=== PATIENT | female | born 1990 | race Asian ===

== ENCOUNTER → 2016-10-14 | Outpatient (CLI) | payer OTHER ==
--- NOTE | 2016-10-14 17:36 | US ---
Complete Pelvic Ultrasound INDICATION: Check lining and complex left ovarian cyst. TECHNIQUE: Transabdominal and transvaginal pelvic ultrasound is performed. Comparison: No priors for comparison. FINDINGS: The uterus measures 8.9 x 4.5 x 5.6 cm. No fibroids. It is anteverted. The endometrial lining measures 6.8 mm, is homogeneous, and is without mass or vascularity. No fluid in the lining. Junctional zone is homogeneous. The right ovary measures 2.6 x 1.6 x 3 cm. It is sonographically normal. The left ovary measures 3.9 x 3 x 4.5 cm. Complex left ovarian cyst measures 2.8 x 2.3 x 2.2 cm, and is without color Doppler flow. No free fluid in the pelvis. IMPRESSIONS 1. Normal right ovary and uterus. 2. Complex left ovarian cyst, without vascularity. This probably represents a hemorrhagic ovarian c yst. E:orlando
== END ==
LOC: CIMAGING 08:50
PROVIDERS: ATTEND Obstetrics & Gynecology
DX: N83.202 Unspecified ovarian cyst, left side (principal)
CPT/HCPCS: 76856-PO

== ENCOUNTER 2017-09-21 05:15 | Observation (INO) | payer OTHER | END 2017-09-21 08:25 | disposition home or self-care (01) | LOC: FLD 05:15 | PROVIDERS: ADMIT Obstetrics & Gynecology; ATTEND Obstetrics & Gynecology | DX: Z34.83 Encounter for supervision of other normal pregnancy, third trimester (principal); Z3A.39 39 weeks gestation of pregnancy | CPT/HCPCS: 59025; G0378 ==

== ENCOUNTER 2017-09-23 14:20 | Inpatient (IN) | payer OTHER ==
[2017-09-23] MEDS ORDERED: OXYTOCIN 20 UNIT in LR 1,000 ML IV PRN (15:38)
[2017-09-23] MEDS ORDERED: EPSOM SALT 454 GM TP PRN (15:38)
[2017-09-23] MEDS ORDERED: TERBUTALINE SULFATE 1 MG/ML VIAL IV PRN (15:38)
[2017-09-23] MEDS ORDERED: LR 1,000 ML IV PRN (15:38)
[2017-09-23] MEDS ORDERED: IBUPROFEN 600 MG TAB PO PRN (15:38)
[2017-09-23] MEDS ORDERED: OLIVE OIL 118 ML BTL MISC PRN (15:38)
[2017-09-23 20:12] LABS: PLATELET COUNT 168 10^3/uL (150-400)
[2017-09-23] MEDS ORDERED: fentaNYL 100 MCG/2 ML INJ ONE (20:36)
[2017-09-23] MEDS ORDERED: BUPIVACAINE 0.25% 30 ML SDV ONE (20:37)
--- NOTE | 2017-09-23 21:00 | GHP ---
[f rep st] PREOP HISTORY AND PHYSICAL DATE OF ADMISSION: 09/23/2017 ADMISSION DIAGNOSES: 1. Intrauterine at 40 and 1/7th weeks' gestation. 2. Early labor. HISTORY OF PRESENT ILLNESS: Patient is a 27-year-old 3, para 0-0-2-0, who is 40 and 1/7th we eks' gestation. Her estimated date of confinement is 09/22/2017, dated by last menstrual period of 0 12/11/2016, consistent with a 6-week ultrasound. Patient initiated care with [facility] at 8 weeks. was initially complicated by low progesterone and some vaginal bleeding. She was treated with vaginal progesterone. The remainder of has been overall unremarkabl e. Patient has been in prodromal labor for the last day and a half. [facility], and was 1 cm dilated. She has had contractions, which feel like they are increasing in frequency and intensity throughout the day, and arrived to Labor and Delivery, and was 1 cm dilat ed still. Contractions have been getting progressively stronger and more intense, and patient was ju st re-examined, and was 3 cm dilated, 80% effaced, and -2 station. The patient is being admitted for expected management and pain relief. MEDICAL HISTORY: Unremarkable. MEDICATIONS: vitamins and iron. SURGICAL HISTORY: Dilation and curettage after a missed . ALLERGIES: No known drug allergies. SOCIAL HISTORY: Patient is a homemaker. She denies tobacco, alcohol, or drug use. She is . FAMILY MEDICAL HISTORY: Noncontributory. OBSTETRICAL/GYNECOLOGICAL HISTORY: Menarche, age 11. Periods every 30 days, lasting 5 days. She is a 3, para 0-0-2-0. In July 2015, she had a missed , for which she had a dilatio n and curettage. In August 2016, she had a spontaneous . Current has been uncom plicated. The patient denies any history of any abnormal Pap smears or sexually-transmitted diseases . REVIEW OF SYSTEMS: 10-point review of systems is negative,with the exception of the above-mentioned pertinent positives. She is having positive contractions. No loss of fluid. Denies any vaginal ble eding. She denies any headache or changes in vision, nausea, vomiting, fevers or chills. She denies the other concerns. PHYSICAL EXAMINATION: VITAL SIGNS: Stable. GENERAL APPEARANCE: Alert and oriented x3, but uncomfo rtable with contractions. PSYCH: She has appropriate affect. NECK: Mobile and supple. HEART: Ra te is regularly regular. LUNGS: Clear to auscultation bilaterally. Abdomen is gravid, nondistended , nontender. EXTREMITIES: Reveal no calf tenderness or edema. NEUROMUSCULAR: Grossly intact. JAMES ROLOGICAL: Exam is grossly intact. PELVIC: She is 3 cm dilated, 80% effaced, and -2 station. Feta l heart tracing is category 1, and she is having irregular contractions. LABS: Blood type A/B positive, antibody screen negative. Rubella immune. GBS negative. H BsAg negative. HIV negative. Her 50 g glucose was 113. She had a negative Verifi screen. ASSESSMENT AND PLAN: A 27-year-old 3, para 0-0-2-0, who is 40 and 1/7th weeks' gestation, wh o presents in early labor. Patient is requesting an epidural. She will receive an epidural, and be augmented as needed. /[id number]/MODL
[2017-09-23] MEDS ORDERED: NALOXONE HCL 0.4 MG/ML INJ IVP PRN (21:04)
[2017-09-23] MEDS ORDERED: ONDANSETRON 4 MG/2 ML VIAL IVP PRN (21:04)
--- NOTE | 2017-09-23 21:08 | PDANEPAE ---
ANE History of Present Illness Pt in active labor ANE Past Medical History Past Medical History: Pt denies significant PMHx - Pulmonary History Hx Sleep Apnea: No - Endocrine History Hx Diabetes: No ANE Review of Systems Review of systems is: negative Review of Systems: ANE Patient History - Allergies Allergies/Adverse Reactions: No Allergies [NKDA] Allergy (Verified 09/21/17 05:41) - Home Medications Home medications: home medication list seen and reviewed Home Medications: IRON,CARBONYL [IRON] 45 mg PO 09/23/17 [Last Taken 2 Days Ago ~09/21/17] Vit27&Calcium/Iron/FA [ Rx 1 Tablet (RX)] 1 each PO DAILY 09/23 [Last Taken 09/23/17] - Smoking Hx Smoking Status: Never smoked ANE Labs/Vital Signs - Labs Result Diagrams: 09/23/17 19:55 - Vital Signs Height: 165 cm Weight: 74.843 kg ANE Physical Exam - Airway Neck exam: FROM ANE Anesthesia Plan Anesthesia Plan: epidural
[2017-09-23] MEDS ORDERED: PHENYLEPHRINE HCL 100 MCG/ML SYR ONE (21:10)
[2017-09-23] MEDS ORDERED: fentaNYL 2MCG/ML/BUP 0.1% RTU 100 ML BAG EP ONE (21:10)
[2017-09-23] MEDS ORDERED: LR 500 ML IV SCH (21:30)
[2017-09-23] MEDS ORDERED: fentaNYL 2MCG/ML/BUP 0.1% RTU 100 ML EP SCH (21:30)
[2017-09-23] MEDS: PHENYLEPHRINE HCL 100 MCG/ML SYR IVP PRN ×5 (21:53→22:24)
--- NOTE | 2017-09-23 22:02 | OBPROG ---
Labor Progress Note Assessment/Plan: Assessment: Plan: Subjective/Intrapartum Course: 09/23/17 21:53 patient comfortable with epidural. contractions have spaced out a bit. patient is exhausted. will reexamine in several hours and augment if needed. status is reassuring. Objective: 09/23/17 19:55 Patient ABO/Rh AB POSITIVE 09/23/17 19:55 - SVE Membranes: Intact - Contraction Pattern Assessment Current Contraction Pattern: Regular - FHR Assessment Painter FHR Pattern Variability: Moderate FHR Category: 1 - AP Antepartum Course: 09/23/17 22:02 [facility] uncomplicated . prodromal labor x 2 day. arrived 1 cm. progressed to 3 cm. requested epidural. Oxytocin Orders Assessment - Pre-Induction/Augmentation Assessment Gestational Age: 40 week(s) and 1 day(s) ICD10 Worksheet Patient Problems: Problems Problem Status Onset Normal labor Acute
[2017-09-23] MEDS ORDERED: LR 500 ML IV PRN (22:04)
[2017-09-23] MEDS ORDERED: OXYTOCIN 30 UNIT in NS 500 ML IV SCH (22:15)
[2017-09-23] MEDS ORDERED: LIDOCAINE 1% 300 MG/30 ML SDV ONE (22:28)
[2017-09-23] MEDS ORDERED: OLIVE OIL 118 ML BTL ONE (22:28)
[2017-09-23] MEDS ORDERED: AMMONIA AROMATIC 1 EACH AMP IH ONE (22:29)
[2017-09-23] MEDS ORDERED: OXYTOCIN 10 UNIT/ML VIAL ONE (22:29)
[2017-09-23] MEDS ORDERED: MISOPROSTOL 200 MCG TAB ONE (22:29)
--- NOTE | 2017-09-24 02:26 | OBPROG ---
Labor Progress Note Assessment/Plan: Assessment: Plan: Subjective/Intrapartum Course: 09/23/17 21:53 patient comfortable with epidural. contractions have spaced out a bit. patient is exhausted. will reexamine in several hours and augment if needed. status is reassuring. 09/24/17 02:19 patient comfortable with epidural. Nurse Joshua examined patient at 0100. membranes grossly ruptured. SVE 4/100/-1. will recheck in 2 hours and augment if needed. Objective: 09/23/17 19:55 Patient ABO/Rh AB POSITIVE 09/23/17 19:55 - SVE Dilation (cm): 4 Effacement (%): 100 Station: -1 Membranes: SROM Amniotic Fluid Color: Clear - Contraction Pattern Assessment Current Contraction Pattern: Regular - FHR Assessment Painter FHR Pattern Variability: Moderate FHR Category: 1 - AP Antepartum Course: 09/23/17 22:02 initiated care in first trimester at [facility]. uncomplicated . prodromal labor x 2 day. arrived 1 cm. progressed to 3 cm. requested epidural. Oxytocin Orders Assessment - Pre-Induction/Augmentation Assessment Gestational Age: 40 week(s) and 1 day(s) ICD10 Worksheet Patient Problems: Problems Problem Status Onset Normal labor Acute
[2017-09-24] MEDS ORDERED: AMPICILLIN SODIUM 1 GM VIAL ONE (08:42)
[2017-09-24] MEDS ORDERED: SODIUM CHLORIDE IV ONE (08:43)
[2017-09-24] MEDS ORDERED: GENTAMICIN IV ONE (08:43)
[2017-09-24] MEDS ORDERED: AMPICILLIN SODIUM 1 GM in NS 100 ML IV SCH (08:45)
[2017-09-24] MEDS ORDERED: GENTAMICIN 80 MG/NACL 100 ML IV SCH (08:45)
[2017-09-24] MEDS ORDERED: AMPICILLIN SODIUM 1 GM in NS 50 ML IV SCH (08:45)
[2017-09-24] MEDS ORDERED: D5W IV ONE (08:47)
[2017-09-24] MEDS ORDERED: GENTAMICIN SULFATE IV ONE (08:47)
[2017-09-24] MEDS: AMPICILLIN SODIUM 1 GM in NS 50 ML IV SCH ×2 (08:55→09:05)
[2017-09-24] MEDS: GENTAMICIN 100 MG/NACL 100 ML IV SCH ×2 (09:14→17:12)
--- NOTE | 2017-09-24 09:34 | OBDEL ---
Info Type: Vaginal Presentation at Delivery: Vertex L&D Analgesia/Anesthesia Type: Epidural GBS+: No Intrapartum Medications: Generic Name Dose Route Start Last Admin Trade Name Freq PRN Reason Stop Dose Admin Lactated Ringer's 1,000 mls @ 0 mls/hr 09/23/17 15:38 09/24/17 09:00 Lr IV 09/24/17 15:37 1,000 mls PRN PRN Administration SEE PROTOCOL CONDITIONS Protocol Per Protocol Gentamicin Sulfate/Sodium Chloride 100 mls @ 100 mls/hr 09/24/17 09:00 09:14 Gentamicin 100 Mg (Premix) IV 10/24/17 08:59 100 mls Q8H TOMMIE Administration Ampicillin Sodium 1 gm/ Sodium 50 mls @ 100 mls/hr 09/24/17 09:00 09/24/17 09 :05 Chloride IV 09/24/17 09:59 50 mls Q30M TOMMIE Administration Phenylephrine HCl 100 mcg 09/23/17 21:04 09/23/17 22:24 Neosynephrine IVP 03/22/18 21:03 100 mcg .Q2M PRN Administration Hypotension Discontinued Medications Generic Name Dose Route Start Last Admin Trade Name Freq PRN Reason Stop Dose Admin Oxytocin 20 unit/ Lactated 1,002 mls @ 150 mls/hr 09/23/17 15:38 09/24/17 09: 18 Ringer's IV 1,002 mls PRN PRN Administration Post- bleeding - Care Provider Solid Waste Management Engineer/INTEGRATED CIRCUITS INSPECTOR: Julisa Caldwell - Hospital Course Intrapartum: 09/23/17 21:53 patient comfortable with epidural. contractions have spaced out a bit. patient is exhausted. will reexamine in several hours and augment if needed. status is reassuring. 09/24/17 02:19 patient comfortable with epidural. Nurse Joshua examined patient at 0100. membranes grossly ruptured. SVE 4/100/-1. will recheck in 2 hours and augment if needed. Indications for Delivery: Spontaneous Labor Vaginal Delivery - Delivery Provider Delivery Physician/CNM: Alysia Salazar - Labor and Delivery Onset of Contractions Date: 09/22/17 Onset of Contractions Time: 22:00 Onset of Contractions Type: Spontaneous Rupture of Membranes Date: 09/24/17 Rupture of Membranes Time: 01:00 Rupture of Membranes Type: Spontaneous Amniotic Fluid Color: Clear, Meconium Stained (fluid noted around 0600 when pt was complete and started pushing) Dilation Complete Date: 09/24/17 Dilation Complete Time: 06:15 Placenta Delivery Date: 09/24/17 Placenta Delivery Time: 09:04 Total Hours of Labor: 35 Non-surgical Procedures: Amniotomy Laceration: 2nd Degree, Other (Specify) (b/l vaginal lacs) Repair: 3-0, Vicryl (x 3) Vaginal Sponge Count Correct: Yes Vaginal Needle Count Correct: Yes Vaginal Sweep Performed: Yes EBL: 500 cc Delivery Events: None Delivery Comment: Pt spiked a fever T max 101 while pushing and was treated for chorio with amp/ gent x 24 hrs [place] Data MARIA Gestational Age: 40 week(s) and 2 day(s) Painter Delivery Date: 09/24/17 Delivery Time: 09:00 Sex of Infant: Female Score (1 Min): 8 Score (5 Min): 9 ICD10 Worksheet Patient Problems: Problems Problem Status Onset Chorioamnionitis, delivered, current hospitalization Acute Normal labor Acute (spontaneous vaginal delivery) Acute - ICD10 Problem Qualifiers (1) Chorioamnionitis, delivered, current hospitalization (2) (spontaneous vaginal delivery)
[2017-09-24] MEDS ORDERED: SIMETHICONE 80 MG TAB CHEW PO PRN (09:37)
[2017-09-24] MEDS ORDERED: HYDROCORTISONE 0.5% CREAM TP PRN (09:37)
[2017-09-24] MEDS ORDERED: HYDROCODONE/APAP 5/325 TAB PO PRN (09:37)
[2017-09-24] MEDS ORDERED: AMPICILLIN SODIUM 2 GM in NS 100 ML IV SCH (12:00)
[2017-09-24] MEDS: AMPICILLIN SODIUM 2 GM in NS 100 ML IV SCH ×2 (15:29→21:26)
[2017-09-24] MEDS: IBUPROFEN 600 MG TAB PO PRN ×2 (17:13→23:34)
[2017-09-24] MEDS: DOCUSATE SODIUM 100 MG CAP PO PRN (21:26)
[2017-09-25] MEDS: GENTAMICIN 100 MG/NACL 100 ML IV SCH ×3 (01:18→16:19)
[2017-09-25] MEDS: AMPICILLIN SODIUM 2 GM in NS 100 ML IV SCH ×4 (03:27→22:01)
[2017-09-25] MEDS: IBUPROFEN 600 MG TAB PO PRN ×3 (06:14→18:18)
--- NOTE | 2017-09-25 08:46 | OBPP ---
Progress Note Assessment/Plan: Assessment: [id number] s/p PPD#1 PPH Plan: routine pp care CBC pending cont ambulate plan to d/c home tomorrow 09/25/17 08:45 09/25/17 08:47 Subjective/ Course: 09/25/17 11:01 pt doing well, denies any heavy bleeding or pain. She is . She is voiding and ambulating without difficulty. FOB is supportive. Objective: 09/23/17 19:55 09/24/17 14:20 Patient ABO/Rh AB POSITIVE 09/23/17 19:55 Temp Pulse Resp BP Pulse Ox 36.9 C 91 18 83/55 L 96 09/25/17 08:00 09/25/17 08:00 09/25/17 08:00 09/25/17 08:00 09/25/17 08:00 Uterine Position/Fundal Height: Umbilicus -1, Midline Uterine Tone: Firm Physical Exam - Physical Exam Neck: supple Respiratory: lungs clear, normal breath sounds Cardiac/Chest: regular rate, rhythm Abdomen: non-tender, soft Extremities: non-tender Skin: normal color, warm/dry Neuro/Psych: alert, normal mood/affect, oriented x 3
[2017-09-25] MEDS: DOCUSATE SODIUM 100 MG CAP PO PRN ×2 (12:15→21:43)
[2017-09-25 14:44] LABS: PLATELET COUNT 140 10^3/uL (150-400)
[2017-09-25 16:01] VITALS: RESP 16
[2017-09-25 19:52] VITALS: BP 89/54; PULSE 81; TEMP 97.2; O2SAT 95
[2017-09-25] MEDS: IRON POLYSAC/IRON HEME 28 MG TAB PO SCH (21:43)
[2017-09-26] MEDS: IBUPROFEN 600 MG TAB PO PRN ×2 (00:18→07:31)
[2017-09-26] MEDS: IRON POLYSAC/IRON HEME 28 MG TAB PO SCH (09:05)
[2017-09-26] MEDS: DOCUSATE SODIUM 100 MG CAP PO PRN (09:05)
--- NOTE | 2017-09-26 10:09 | OBPP ---
Progress Note Assessment/Plan: Assessment: 27 y/o PPD #2 s/p doing well with post anemia Plan: D/c home today with Bifera, PNV. Lactations support. Follow-up @ [facility] 4 and 6 weeks. 09/26/17 10:08 Subjective/ Course: 09/25/17 11:01 pt doing well, denies any heavy bleeding or pain. She is . She is voiding and ambulating without difficulty. FOB is supportive. 09/26/17 10:07 Pt is doing well this am. She is nursing, ambulating and voiding without difficulty. They are ready to d.c home. Objective: 09/25/17 14:30 09/24/17 14:20 Patient ABO/Rh AB POSITIVE 09/23/17 19:55 Temp Pulse Resp BP Pulse Ox 36.2 C 81 16 89/54 L 95 09/25/17 19:52 09/25/17 19:52 09/25/17 19:52 09/25/17 19:52 09/25/17 19:52 Uterine Position/Fundal Height: Umbilicus -2 Uterine Tone: Firm Physical Exam - Physical Exam Neck: non-tender, full range of motion, supple Respiratory: chest non-tender, lungs clear, normal breath sounds Cardiac/Chest: regular rate, rhythm Abdomen: normal bowel sounds Extremities: swelling (1+), Valdo's sign (neg)
--- NOTE | 2017-09-26 10:10 | OBGCSDC ---
General Delivery Information - General Info : 1 Para: 1 Abortions: 0 Type: Vaginal L&D Analgesia/Anesthesia Type: Epidural Admission Date: 09/23/17 Labs: Patient ABO/Rh AB POSITIVE 09/23/17 19:55 Hct 24.2 % (38.0-47.0) L D 09/25/17 14:30 - Hospital Course Antepartum: 09/23/17 22:02 initiated care in first trimester at [facility]. uncomplicated . prodromal labor x 2 day. arrived 1 cm. progressed to 3 cm. requested epidural. Intrapartum: 09/23/17 21:53 patient comfortable with epidural. contractions have spaced out a bit. patient is exhausted. will reexamine in several hours and augment if needed. status is reassuring. 09/24/17 02:19 patient comfortable with epidural. Nurse Joshua examined patient at 0100. membranes grossly ruptured. SVE 4/100/-1. will recheck in 2 hours and augment if needed. : 09/25/17 11:01 pt doing well, denies any heavy bleeding or pain. She is . She is voiding and ambulating without difficulty. FOB is supportive. 09/26/17 10:07 Pt is doing well this am. She is nursing, ambulating and voiding without difficulty. They are ready to d.c home. Vaginal - Delivery Provider Delivery Physician/CNM: Alysia Salazar - Diagnosis Labor: Spontaneous Rupture of Membranes Type: Spontaneous Amniotic Fluid Color: Clear, Meconium Stained (fluid noted around 0600 when pt was complete and started pushing) Laceration: 2nd Degree, Other (Specify) (b/l vaginal lacs) Repair: 3-0, Vicryl (x 3) Delivery Events: None - Procedures Non-surgical Procedures: Amniotomy - Delivery Non-surgical Procedures: Amniotomy EBL: 500 cc Data MARIA Gestational Age: 40 week(s) and 4 day(s) Painter Delivery Date: 09/24/17 Delivery Time: 09:00 Sex of : Female Score (1 Min): 8 Score (5 Min): 9 Discharge Information - Discharge Information Prescriptions: Ibuprofen [Motrin (*)] 600 mg PO Q6HRS PRN #30 tab PRN Reason: Pain, Inflammatory Iron Polysacch/Iron Heme Polyp [Bifera] 28 mg PO TID #90 tab Condition: Good Instruction/Follow Up: Four Weeks, Six Weeks
== END 2017-09-26 13:30 | disposition home or self-care (01) | DRG 775 ==
LOC: FLD 14:20 → FOB 09-24 12:42
PROVIDERS: ADMIT Obstetrics & Gynecology; ATTEND Obstetrics & Gynecology
PROC: 10E0XZZ Delivery of Products of Conception, External Approach (ICD-10-PCS; principal; 2017-09-23)
PROC: 0KQM0ZZ Repair Perineum Muscle, Open Approach (ICD-10-PCS; principal; 2017-09-23)
DX: O48.0 Post-term pregnancy (principal); O70.1 Second degree perineal laceration during delivery; O77.0 Labor and delivery complicated by meconium in amniotic fluid; O41.1230 Chorioamnionitis, third trimester, not applicable or unspecified; Z3A.40 40 weeks gestation of pregnancy; Z37.0 Single live birth
CPT/HCPCS: J0290; J1580; J2370; J3010